=== PATIENT | male | born 1945 | race Caucasian/White ===

== ENCOUNTER 2016-12-03 13:44 | Emergency (ER) | payer MEDICARE, OTHER ==
[~2016-12-03] VITALS: Ht 175.3 cm; Wt 104.3 kg
--- OUTSIDE RECORDS SUMMARY | ~2016-12-03 | XMS ---
Demographics + + + | Address | [address] | | | [place] [address] | + + + | Preferred Language | Unknown | + + + | Marital Status | Unknown | + + + | Zoroastrian Affiliation | Unknown | + + + | Race | Unknown | + + + | Ethnic Group | Unknown | + + + Author + + + | Author | [facility] | + + + | Organization | [facility] | + + + | Address | [address] | | | [place] [address] | + + + | Phone | | + + + Care Team Providers + + + + | Care Outpatient Scheduler Name | Role | Phone | + + + + Unavailable | Unavailable | + + + + PROBLEMS +---------+ + + +--------+ + + | Type | Condition | ICD9-CM | [id number] | Onset | Condition | SNOMED | | | | Code | Code | Dates | Status | Code | +---------+ + + +--------+ + + | Problem | Cardiovasc | I25.10 | | | Active | [id number] | | | ular | | | | | | | | disease | | | | | | +---------+ + + +--------+ + + | Problem | Type 2 | | E11.9 | | Active | [id number] | | | diabetes | | | | | | | | mellitus | | | | | | | | without | | | | | | | | complicati | | | | | | | | ons | | | | | | +---------+ + + +--------+ + + | Problem | Hyperlipid | | E78.5 | | Active | [id number] | | | emia | | | | | | +---------+ + + +--------+ + + ALLERGIES Unknown Allergies SOCIAL HISTORY No smoking Hx information available PLAN OF CARE VITAL SIGNS MEDICATIONS Unknown Medications RESULTS No Results PROCEDURES No Known procedures IMMUNIZATIONS No Known Immunizations"
--- OUTSIDE RECORDS SUMMARY | ~2016-12-03 | XMS ---
Demographics + + + | Address | [address] | | | [address] | | | [place] [address] | + + + | Preferred Language | Unknown | + + + | Marital Status | Unknown | + + + | Mandaeism Affiliation | Unknown | + + + | Race | Unknown | + + + | Ethnic Group | Unknown | + + + Author + + + | Author | [facility] | + + + | Organization | [facility] | + + + | Address | [address] | | | [place] [address] | + + + | Phone | | + + + Care Team Providers + + + + | Care Paragliding Instructor Name | Role | Phone | + + + + Unavailable | Unavailable | + + + + PROBLEMS +---------+ + + +--------+ + + | Type | Condition | ICD9-CM | [id number] | Onset | Condition | SNOMED | | | | Code | Code | Dates | Status | Code | +---------+ + + +--------+ + + | Problem | Headache | | R51 | | Active | [id number] | +---------+ + + +--------+ + + | Problem | Cardiovasc | I25.10 | | | Active | 14487034 | | | ular | | | | | | | | disease | | | | | | +---------+ + + +--------+ + + | Problem | Type 2 | | E11.9 | | Active | [id number] | | | diabetes | | | | | | | | mellitus | | | | | | | | without | | | | | | | | complicati | | | | | | | | ons | | | | | | +---------+ + + +--------+ + + | Problem | Hyperlipid | | E78.5 | | Active | 68883228 | | | emia | | | | | | +---------+ + + +--------+ + + ALLERGIES Unknown Allergies SOCIAL HISTORY No smoking Hx information available PLAN OF CARE VITAL SIGNS MEDICATIONS Unknown Medications RESULTS No Results PROCEDURES No Known procedures IMMUNIZATIONS No Known Immunizations"
--- OUTSIDE RECORDS SUMMARY | ~2016-12-03 | XMS ---
Demographics + + + | Address | [address] | | | [address] | | | [place] [address] | + + + | Preferred Language | Unknown | + + + | Marital Status | Unknown | + + + | Druze Affiliation | Unknown | + + + | Race | Unknown | + + + | Ethnic Group | Unknown | + + + Author + + + | Author | [facility] | + + + | Organization | [facility] | + + + | Address | [address] | | | [place] [address] | + + + | Phone | | + + + Care Team Providers + + + + | Care Regional Cra Name | Role | Phone | + + + + Unavailable | Unavailable | + + + + PROBLEMS + + + + + + + + | Type | Condition | ICD9-CM | [id number] | Onset | Condition | SNOMED | | | | Code | Code | Dates | Status | Code | + + + + + + + + | Problem | Headache | | R51 | | Active | [id number] | + + + + + + + + | Problem | Cardiovasc | I25.10 | | | Active | 03067066 | | | ular | | | | | | | | disease | | | | | | + + + + + + + + | Assessment | tank terminal gauger | | Z79.01 | 11 September, | Active | [id number] | | | (current) | | | 2016 | | | | | use of | | | | | | | | anticoagul | | | | | | | | ants | | | | | | + + + + + + + + | Problem | Type 2 | | E11.9 | | Active | [id number] | | | diabetes | | | | | | | | mellitus | | | | | | | | without | | | | | | | | complicati | | | | | | | | ons | | | | | | + + + + + + + + | Problem | Hyperlipid | | E78.5 | | Active | 84362037 | | | emia | | | | | | + + + + + + + + ALLERGIES + + + + +--------+ | Substance | Reaction | Event Type | Date | Status | + + + + +--------+ | PredniSONE | Unknown | Drug Allergy | August, | Active | + + + + +--------+ | Depakene | Unknown | Drug Allergy | August, | Active | + + + + +--------+ | Valproic Acid | Unknown | Non Drug | August, | Active | | | | Allergy | | | + + + + +--------+ | PCN | Unknown | Non Drug | August, | Active | | | | Allergy | | | + + + + +--------+ SOCIAL HISTORY No smoking Hx information available PLAN OF CARE + +---------+ | Activity | Details | + +---------+ +---+ | | +---+ + + + | Pending Test | INR | + + + | | 2 - 3 Days,Reason: | + + + VITAL SIGNS + + + + | Height | 70 in | 2016-09-11 | + + + + | Weight | 237.5 lbs | 2016-09-11 | + + + + | BMI | 34.07 kg/m2 | 2016-09-11 | + + + + | Temperature | 97.9 degrees Fahrenheit | 2016-09-11 | + + + + | Heart Rate | 78 /min | 2016-09-11 | + + + + | Blood pressure systolic | 156 mm Hg | 2016-09-11 | + + + + | Blood pressure diastolic | 94 mm Hg | 2016-09-11 | + + + + MEDICATIONS + + +--------+ +--------+ + +--------+ | Medicati | Instruct | Dosage | Frequenc | Start | End Date | Duration | Status | | on | ions | | y | Date | | | | + + +--------+ +--------+ + +--------+ | Coumadin | | | | | | | Active | + + +--------+ +--------+ + +--------+ | Lamotrig | Orally | 1 tab | 12h | | | 30 | Active | | ine 200 | Twice a | | | | | | | | mg | day | | | | | | | + + +--------+ +--------+ + +--------+ | Keppra | Orally | 3 tabs | 12h | | | 30 | Active | | 500 MG | bid | | | | | | | + + +--------+ +--------+ + +--------+ RESULTS No Results PROCEDURES + + + + + | Procedure | Date Ordered | Related Diagnosis | Body Site | + + + + + | Office Visit, Est | September 11, 2016 | | | | Pt., Level 4 | | | | + + + + + IMMUNIZATIONS No Known Immunizations"
--- OUTSIDE RECORDS SUMMARY | ~2016-12-03 | XMS ---
Demographics + + + | Address | [address] | | | [address] | | | [place] [address] | + + + | Preferred Language | Unknown | + + + | Marital Status | Unknown | + + + | Scientology Affiliation | Unknown | + + + | Race | Unknown | + + + | Ethnic Group | Unknown | + + + Author + + + | Author | [facility] | + + + | Organization | [facility] | + + + | Address | [address] | | | [place] [address] | + + + | Phone | | + + + Care Team Providers + + + + | Care Software Application Tester Name | Role | Phone | + + + + Unavailable | Unavailable | + + + + PROBLEMS +---------+ + + +--------+ + + | Type | Condition | ICD9-CM | [id number] | Onset | Condition | SNOMED | | | | Code | Code | Dates | Status | Code | +---------+ + + +--------+ + + | Problem | Headache | | R51 | | Active | [id number] | +---------+ + + +--------+ + + | Problem | Cardiovasc | I25.10 | | | Active | 55625018 | | | ular | | | | | | | | disease | | | | | | +---------+ + + +--------+ + + | Problem | Type 2 | | E11.9 | | Active | 062839112 | | | diabetes | | | | | | | | mellitus | | | | | | | | without | | | | | | | | complicati | | | | | | | | ons | | | | | | +---------+ + + +--------+ + + | Problem | Hyperlipid | | E78.5 | | Active | 28637804 | | | emia | | | | | | +---------+ + + +--------+ + + ALLERGIES Unknown Allergies SOCIAL HISTORY No smoking Hx information available PLAN OF CARE VITAL SIGNS MEDICATIONS Unknown Medications RESULTS No Results PROCEDURES No Known procedures IMMUNIZATIONS No Known Immunizations"
--- OUTSIDE RECORDS SUMMARY | ~2016-12-03 | XMS ---
Demographics + + + | Address | [address] | | | [place] [address] | + + + | Preferred Language | Unknown | + + + | Marital Status | Unknown | + + + | Buddhism Affiliation | Unknown | + + + | Race | Unknown | + + + | Ethnic Group | Unknown | + + + Author + + + | Author | [facility] | + + + | Organization | [facility] | + + + | Address | [address] | | | [place] [address] | + + + | Phone | | + + + Care Team Providers + + + + | Care Cloth Layer Name | Role | Phone | + + + + Unavailable | Unavailable | + + + + PROBLEMS + + + + + + + + | Type | Condition | ICD9-CM | [id number] | Onset | Condition | SNOMED | | | | Code | Code | Dates | Status | Code | + + + + + + + + | Problem | Cardiovasc | I25.10 | | | Active | 35400280 | | | ular | | | | | | | | disease | | | | | | + + + + + + + + | Problem | Type 2 | | E11.9 | | Active | 831531233 | | | diabetes | | | | | | | | mellitus | | | | | | | | without | | | | | | | | complicati | | | | | | | | ons | | | | | | + + + + + + + + | Assessment | History of | Z86.711 | | 25 August, | Active | 576782432 | | | 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 | | | | | embolus | | | | | | | | (PE) | | | | | | + + + + + + + + | Problem | Hyperlipid | | E78.5 | | Active | 92261396 | | | emia | | | | | | + + + + + + + + | Assessment | Type 2 | | E11.9 | August, | Active | [id number] | | | diabetes | | | 2016 | | | | | mellitus | [...] information available PLAN OF CARE VITAL SIGNS + + + + | Height | 70 in | 2016-08-25 | + + + + | Weight | 234 lbs | 2016-08-25 | + + + + | BMI | 33.57 kg/m2 | 2016-08-25 | + + + + | Heart Rate | 66 /min | 2016-08-25 | + + + + | Blood pressure systolic | 149 mm Hg | 2016-08-25 | + + + + | Blood pressure diastolic | 85 mm Hg | 2016-08-25 | + + + + MEDICATIONS + + + + + + + +--------+ | Medicati | Instruct | Dosage | Frequenc | Start | End Date | Duration | Status | | on | ions | | y | Date | | | | + + + + + + + +--------+ | Metformi | Orally | 1 tablet | 12h | 04 August, | | 30 | Active | | n HCl | Twice a | with | | 2016 | | day(s) | | | 1000 MG | day | meals | | | | | | + + + + + + + +--------+ | Keppra | | | | | | | Active | | 250 MG | | | | | | | | + + + + + + + +--------+ | Lamotrig | Orally | 1 | 12h | | | | Active | | ine 100 | Twice a | 1/2table | | | | | | | mg | day | t | | | | | | + + + + + + + +--------+ RESULTS + +--------+ + + | Name | Result | Date | Reference Range | + +--------+ + + | Hb A1C | | 2016-08-25 | | + +--------+ + + | Hemoglobin A1c | 7.6 | | | + +--------+ + + PROCEDURES + + + + + | Procedure | Date Ordered | Related Diagnosis | Body Site | + + + + + | Office Visit, Est | August 25, 2016 | | | | Pt., Level 3 | | | | + + + + + IMMUNIZATIONS No Known Immunizations"
--- OUTSIDE RECORDS SUMMARY | ~2016-12-03 | XMS ---
Demographics + + + | Address | [address] | | | [place] [address] | + + + | Preferred Language | Unknown | + + + | Marital Status | Unknown | + + + | Buddhist Affiliation | Unknown | + + + | Race | Unknown | + + + | Ethnic Group | Unknown | + + + Author + + + | Author | [facility] | + + + | Organization | [facility] | + + + | Address | [address] | | | [place] [address] | + + + | Phone | Unavailable | + + + Care Team Providers + + + + | Care Job Spotter Name | Role | Phone | + + + + Unavailable | Unavailable | + + + + PROBLEMS Unknown Problems ALLERGIES Unknown Allergies SOCIAL HISTORY No smoking Hx information available PLAN OF CARE VITAL SIGNS MEDICATIONS Unknown Medications RESULTS No Results PROCEDURES No Known procedures IMMUNIZATIONS No Known Immunizations"
--- OUTSIDE RECORDS SUMMARY | ~2016-12-03 | XMS ---
Demographics + + + | Address | [address] | | | [place] [address] | + + + | Preferred Language | Unknown | + + + | Marital Status | Unknown | + + + | Anglican Affiliation | Unknown | + + + | Race | Unknown | + + + | Ethnic Group | Unknown | + + + Author + + + | Author | [facility] | + + + | Organization | [facility] | + + + | Address | [address] | | | [place] [address] | + + + | Phone | | + + + Care Team Providers + + + + | Care Field Marketing Specialist Name | Role | Phone | + + + + Unavailable | Unavailable | + + + + PROBLEMS +---------+ + + +--------+ + + | Type | Condition | ICD9-CM | [id number] | Onset | Condition | SNOMED | | | | Code | Code | Dates | Status | Code | +---------+ + + +--------+ + + | Problem | Cardiovasc | I25.10 | | | Active | 87528753 | | | ular | | | | | | | | disease | | | | | | +---------+ + + +--------+ + + | Problem | Type 2 | | E11.9 | | Active | 492404754 | | | diabetes | | | | | | | | mellitus | | | | | | | | without | | | | | | | | complicati | | | | | | | | ons | | | | | | +---------+ + + +--------+ + + | Problem | Hyperlipid | | E78.5 | | Active | 57970482 | | | emia | | | | | | +---------+ + + +--------+ + + ALLERGIES Unknown Allergies SOCIAL HISTORY No smoking Hx information available PLAN OF CARE VITAL SIGNS MEDICATIONS Unknown Medications RESULTS No Results PROCEDURES No Known procedures IMMUNIZATIONS No Known Immunizations"
--- OUTSIDE RECORDS SUMMARY | ~2016-12-03 | XMS ---
Demographics + + + | Address | [address] | | | [address] | | | [place] [address] | + + + | Preferred Language | Unknown | + + + | Marital Status | Unknown | + + + | Protestant Affiliation | Unknown | + + + | Race | Unknown | + + + | Ethnic Group | Unknown | + + + Author + + + | Author | [facility] | + + + | Organization | [facility] | + + + | Address | [address] | | | [place] [address] | + + + | Phone | | + + + Care Team Providers + + + + | Care Event Sales Manager Name | Role | Phone | + + + + Unavailable | Unavailable | + + + + PROBLEMS +---------+ + + +--------+ + + | Type | Condition | ICD9-CM | [id number] | Onset | Condition | SNOMED | | | | Code | Code | Dates | Status | Code | +---------+ + + +--------+ + + | Problem | Headache | | R51 | | Active | 60420816 | +---------+ + + +--------+ + + | Problem | Cardiovasc | I25.10 | | | Active | 31362835 | | | ular | | | | | | | | disease | | | | | | +---------+ + + +--------+ + + | Problem | Type 2 | | E11.9 | | Active | 859075929 | | | diabetes | | | | | | | | mellitus | | | | | | | | without | | | | | | | | complicati | | | | | | | | ons | | | | | | +---------+ + + +--------+ + + | Problem | Hyperlipid | | E78.5 | | Active | 32503440 | | | emia | | | | | | +---------+ + + +--------+ + + ALLERGIES Unknown Allergies SOCIAL HISTORY No smoking Hx information available PLAN OF CARE VITAL SIGNS MEDICATIONS + + +--------+ +--------+ + +--------+ | Medicati | Instruct | Dosage | Frequenc | Start | End Date | Duration | Status | | on | ions | | y | Date | | | | + + +--------+ +--------+ + +--------+ | Lamotrig | Orally | 1 tab | 12h | | | 30 days | Active | | ine 200 | Twice a | | | | | | | | mg | day | | | | | | | + + +--------+ +--------+ + +--------+ RESULTS No Results PROCEDURES No Known procedures IMMUNIZATIONS No Known Immunizations"
--- OUTSIDE RECORDS SUMMARY | ~2016-12-03 | XMS ---
Demographics + + + | Address | [address] | | | [address] | | | [place] [address] | + + + | Preferred Language | Unknown | + + + | Marital Status | Unknown | + + + | Mandaen Affiliation | Unknown | + + + | Race | Unknown | + + + | Ethnic Group | Unknown | + + + Author + + + | Author | [facility] | + + + | Organization | [facility] | + + + | Address | [address] | | | [place] [address] | + + + | Phone | | + + + Care Team Providers + + + + | Care Pathology Specialist Name | Role | Phone | + + + + Unavailable | Unavailable | + + + + PROBLEMS +---------+ + + +--------+ + + | Type | Condition | ICD9-CM | [id number] | Onset | Condition | SNOMED | | | | Code | Code | Dates | Status | Code | +---------+ + + +--------+ + + | Problem | Headache | | R51 | | Active | 92696674 | +---------+ + + +--------+ + + | Problem | Cardiovasc | I25.10 | | | Active | 91831835 | | | ular | | | | | | | | disease | | | | | | +---------+ + + +--------+ + + | Problem | Type 2 | | E11.9 | | Active | 254943327 | | | diabetes | | | | | | | | mellitus | | | | | | | | without | | | | | | | | complicati | | | | | | | | ons | | | | | | +---------+ + + +--------+ + + | Problem | Hyperlipid | | E78.5 | | Active | 97595988 | | | emia | | | | | | +---------+ + + +--------+ + + ALLERGIES No Known Allergies SOCIAL HISTORY No smoking Hx information [...]
--- OUTSIDE RECORDS SUMMARY | ~2016-12-03 | XMS ---
Demographics + + + | Address | [address] | | | [place] [address] | + + + | Preferred Language | Unknown | + + + | Marital Status | Unknown | + + + | Jew Affiliation | Unknown | + + + | Race | Unknown | + + + | Ethnic Group | Unknown | + + + Author + + + | Author | [facility] | + + + | Organization | [facility] | + + + | Address | [address] | | | [place] [address] | + + + | Phone | | + + + Care Team Providers + + + + | Care Aoc Operations Intelligence Officer Name | Role | Phone | + + + + Unavailable | Unavailable | + + + + PROBLEMS +---------+ + + +--------+ + + | Type | Condition | ICD9-CM | [id number] | Onset | Condition | SNOMED | | | | Code | Code | Dates | Status | Code | +---------+ + + +--------+ + + | Problem | Cardiovasc | I25.10 | | | Active | 27264432 | | | ular | | | | | | | | disease | | | | | | +---------+ + + +--------+ + + | Problem | Type 2 | | E11.9 | | Active | 122772513 | | | diabetes | | | | | | | | mellitus | | | | | | | | without | | | | | | | | complicati | | | | | | | | ons | | | | | | +---------+ + + +--------+ + + | Problem | Hyperlipid | | E78.5 | | Active | 23844464 | | | emia | | | [...]
--- OUTSIDE RECORDS SUMMARY | ~2016-12-03 | XMS ---
Demographics + + + | Address | [address] | | | [place] [address] | + + + | Preferred Language | Unknown | + + + | Marital Status | Unknown | + + + | Caodaism Affiliation | Unknown | + + + | Race | Unknown | + + + | Ethnic Group | Unknown | + + + Author + + + | Author | [facility] | + + + | Organization | [facility] | + + + | Address | [address] | | | [place] [address] | + + + | Phone | | + + + Care Team Providers + + + + | Care Front Desk Officer Name | Role | Phone | + + + + Unavailable | Unavailable | + + + + PROBLEMS +---------+ + + +--------+ + + | Type | Condition | ICD9-CM | [id number] | Onset | Condition | SNOMED | | | | Code | Code | Dates | Status | Code | +---------+ + + +--------+ + + | Problem | Cardiovasc | I25.10 | | | Active | 41790693 | | | ular | | | | | | | | disease | | | | | | +---------+ + + +--------+ + + | Problem | Type 2 | | E11.9 | | Active | 729644320 | | | diabetes | | | | | | | | mellitus | | | | | | | | without | | | | | | | | complicati | | | | | | | | ons | | | | | | +---------+ + + +--------+ + + | Problem | Hyperlipid | | E78.5 | | Active | 90072448 | | | emia | | | | | | +---------+ + + +--------+ + + ALLERGIES Unknown Allergies SOCIAL HISTORY No smoking Hx information available PLAN OF CARE VITAL SIGNS MEDICATIONS Unknown Medications RESULTS No Results PROCEDURES No Known procedures IMMUNIZATIONS No Known Immunizations"
--- OUTSIDE RECORDS SUMMARY | ~2016-12-03 | XMS ---
Demographics + + + | Address | [address] | | | [place] [address] | + + + | Preferred Language | Unknown | + + + | Marital Status | Unknown | + + + | Episcopal Affiliation | Unknown | + + + | Race | Unknown | + + + | Ethnic Group | Unknown | + + + Author + + + | Author | [facility] | + + + | Organization | [facility] | + + + | Address | [address] | | | [place] [address] | + + + | Phone | | + + + Care Team Providers + + + + | Care Mobile Architect Name | Role | Phone | + + + + Unavailable | Unavailable | + + + + PROBLEMS +---------+ + + +--------+ + + | Type | Condition | ICD9-CM | [id number] | Onset | Condition | SNOMED | | | | Code | Code | Dates | Status | Code | +---------+ + + +--------+ + + | Problem | Cardiovasc | I25.10 | | | Active | 04097097 | | | ular | | | | | | | | disease | | | | | | +---------+ + + +--------+ + + | Problem | Type 2 | | E11.9 | | Active | 647267944 | | | diabetes | | | | | | | | mellitus | | | | | | | | without | | | | | | | | complicati | | | | | | | | ons | | | | | | +---------+ + + +--------+ + + | Problem | Hyperlipid | | E78.5 | | Active | 17699776 | | | emia | | | | | | +---------+ + + +--------+ + + ALLERGIES Unknown Allergies SOCIAL HISTORY No smoking Hx information available PLAN OF CARE VITAL SIGNS MEDICATIONS + + + + + + + +--------+ | Medicati | Instruct | Dosage | Frequenc | Start | End Date | Duration | Status | | on | ions | | y | Date | | | | + + + + + + + +--------+ | Metformi | Orally | 1 tablet | 12h | 25 August, | | 30 | Active | | n HCl | Twice a | with | | 2017 | | day(s) | | | 1000 MG | day | meals | | | | | | + + + + + + + +--------+ | Keppra | Orally | [...] + + + + + +--------+ RESULTS No Results PROCEDURES No Known procedures IMMUNIZATIONS No Known Immunizations"
--- OUTSIDE RECORDS SUMMARY | ~2016-12-03 | XMS ---
Demographics + + + | Address | [address] | | | [address] | | | [place] [address] | + + + | Preferred Language | Unknown | + + + | Marital Status | Unknown | + + + | Quaker Affiliation | Unknown | + + + | Race | Unknown | + + + | Ethnic Group | Unknown | + + + Author + + + | Author | [facility] | + + + | Organization | [facility] | + + + | Address | [address] | | | [place] [address] | + + + | Phone | | + + + Care Team Providers + + + + | Care Vamp Throater Name | Role | Phone | + + + + Unavailable | Unavailable | + + + + PROBLEMS +---------+ + + +--------+ + + | Type | Condition | ICD9-CM | [id number] | Onset | Condition | SNOMED | | | | Code | Code | Dates | Status | Code | +---------+ + + +--------+ + + | Problem | Headache | | R51 | | Active | 08949063 | +---------+ + + +--------+ + + | Problem | Cardiovasc | I25.10 | | | Active | 58468491 | | | ular | | | | | | | | disease | | | | | | +---------+ + + +--------+ + + | Problem | Type 2 | | E11.9 | | Active | 155127017 | | | diabetes | | | | | | | | mellitus | | | | | | | | without | | | | | | | | complicati | | | | | | | | ons | | | | | | +---------+ + + +--------+ + + | Problem | Hyperlipid | | E78.5 | | Active | 20776157 | | | emia | | | | | | +---------+ + + +--------+ + + ALLERGIES Unknown Allergies SOCIAL HISTORY No smoking Hx information available PLAN OF CARE VITAL SIGNS MEDICATIONS Unknown Medications RESULTS No Results PROCEDURES No Known procedures IMMUNIZATIONS No Known Immunizations"
--- OUTSIDE RECORDS SUMMARY | ~2016-12-03 | XMS ---
Demographics + + + | Address | [address] | | | [place] [address] | + + + | Preferred Language | Unknown | + + + | Marital Status | Unknown | + + + | Jehovah'S Witness Affiliation | Unknown | + + + | Race | Unknown | + + + | Ethnic Group | Unknown | + + + Author + + + | Author | [facility] | + + + | Organization | [facility] | + + + | Address | [address] | | | [place] [address] | + + + | Phone | | + + + Care Team Providers + + + + | Care Freight Car Builder Name | Role | Phone | + + + + Unavailable | Unavailable | + + + + PROBLEMS +---------+ + + +--------+ + + | Type | Condition | ICD9-CM | [id number] | Onset | Condition | SNOMED | | | | Code | Code | Dates | Status | Code | +---------+ + + +--------+ + + | Problem | Cardiovasc | I25.10 | | | Active | [id number] | | | ular | | | | | | | | disease | | | | | | +---------+ + + +--------+ + + | Problem | Type 2 | | E11.9 | | Active | [id number] | | | diabetes | | | | | | | | mellitus | | | | | | | | without | | | | | | | | complicati | | | | | | | | ons | | | | | | +---------+ + + +--------+ + + | Problem | Hyperlipid | | E78.5 | | Active | [id number] | | | emia | | | | | | +---------+ + + +--------+ + + ALLERGIES Unknown Allergies SOCIAL HISTORY No smoking Hx information available PLAN OF CARE VITAL SIGNS MEDICATIONS + + + + +--------+ + +--------+ | Medicati | Instruct | Dosage | Frequenc | Start | End Date | Duration | Status | | on | ions | | y | Date | | | | + + + + +--------+ + +--------+ | Lamotrig | Orally | 1 | 12h | | | | Active | | ine 100 | Twice a | 1/2table | | | | | | | mg | day | t | | | | | | + + + + +--------+ + +--------+ RESULTS No Results PROCEDURES No Known procedures IMMUNIZATIONS No Known Immunizations"
--- OUTSIDE RECORDS SUMMARY | ~2016-12-03 | XMS ---
Demographics + + + | Address | [address] | | | [address] | | | [place] [address] | + + + | Preferred Language | Unknown | + + + | Marital Status | Unknown | + + + | Confucianist Affiliation | Unknown | + + + | Race | Unknown | + + + | Ethnic Group | Unknown | + + + Author + + + | Author | [facility] | + + + | Organization | [facility] | + + + | Address | [address] | | | [place] [address] | + + + | Phone | | + + + Care Team Providers + + + + | Care Suspension Cord Tier Name | Role | Phone | + + + + Unavailable | Unavailable | + + + + PROBLEMS +---------+ + + +--------+ + + | Type | Condition | ICD9-CM | [id number] | Onset | Condition | SNOMED | | | | Code | Code | Dates | Status | Code | +---------+ + + +--------+ + + | Problem | Headache | | R51 | | Active | [id number] | +---------+ + + +--------+ + + | Problem | Cardiovasc | I25.10 | | | Active | [id number] | | | ular | | | | | | | | disease | | | | | | +---------+ + + +--------+ + + | Problem | Type 2 | | E11.9 | | Active | [id number] | | | diabetes | | | | | | | | mellitus | | | | | | | | without | | | | | | | | complicati | | | | | | | | ons | | | | | | +---------+ + + +--------+ + + | Problem | Hyperlipid | | E78.5 | | Active | [id number] | | | emia | | | | | | +---------+ + + +--------+ + + ALLERGIES + + + + +--------+ | Substance | Reaction | Event Type | Date | Status | + + + + +--------+ | PredniSONE | Unknown | Drug Allergy | Sep, | Active | + + + + +--------+ | Depakene | Unknown | Drug Allergy | Sep, | Active | + + + + +--------+ | Valproic Acid | Unknown | Non Drug | Sep, | Active | | | | Allergy | | | + + + + +--------+ | PCN | Unknown | Non Drug | Sep, | Active | | | | Allergy | | | + + + + +--------+ SOCIAL HISTORY No smoking Hx information available PLAN OF CARE + +---------+ | Activity | Details | + +---------+ +---+ | | +---+ + + + | Follow Up | prn Reason:null | + + + VITAL SIGNS + + + + | Height | 70 in | 2016-10-06 | + + + + | Weight | 235.6 lbs | 2016-10-06 | + + + + | BMI | 33.80 kg/m2 | 2016-10-06 | + + + + | Temperature | 97.9 degrees Fahrenheit | 2016-10-06 | + + + + | Heart Rate | 65 /min | 2016-10-06 | + + + + | Blood pressure systolic | 136 mm Hg | 2016-10-06 | + + + + | Blood pressure diastolic | 75 mm Hg | 2016-10-06 | + + + + MEDICATIONS + [...] +--------+ +--------+ + +--------+ | Coumadin | Orally | | 24h | | | | Active | | 10 MG | Once a | | | | | | | | | day | | | | | [...] + + | Office Visit, Est | October 06, 2016 | | | | Pt., Level 2 | | | | + + + + + IMMUNIZATIONS No Known Immunizations"
--- OUTSIDE RECORDS SUMMARY | ~2016-12-03 | XMS ---
Demographics + + + | Address | [address] | | | [address] | | | [place] [address] | + + + | Preferred Language | Unknown | + + + | Marital Status | Unknown | + + + | Gnosticist Affiliation | Unknown | + + + | Race | Unknown | + + + | Ethnic Group | Unknown | + + + Author + + + | Author | [facility] | + + + | Organization | [facility] | + + + | Address | [address] | | | [place] [address] | + + + | Phone | | + + + Care Team Providers + + + + | Care Oracle Financials Consultant Name | Role | Phone | + + + + Unavailable | Unavailable | + + + + PROBLEMS +---------+ + + +--------+ + + | Type | Condition | ICD9-CM | [id number] | Onset | Condition | SNOMED | | | | Code | Code | Dates | Status | Code | +---------+ + + +--------+ + + | Problem | Headache | | R51 | | Active | [id number] | +---------+ + + +--------+ + + | Problem | Cardiovasc | I25.10 | | | Active | 76022848 | | | ular | | | | | | | | disease | | | | | | +---------+ + + +--------+ + + | Problem | Type 2 | | E11.9 | | Active | [id number] | | | diabetes | | | | | | | | mellitus | | | | | | | | without | | | | | | | | complicati | | | | | | | | ons | | | | | | +---------+ + + +--------+ + + | Problem | Hyperlipid | | E78.5 | | Active | [id number] | | | emia | | | | | | +---------+ + + +--------+ + + ALLERGIES No Known Allergies SOCIAL HISTORY No smoking Hx information available PLAN OF CARE VITAL SIGNS MEDICATIONS No Known Medications RESULTS No Results PROCEDURES No Known procedures IMMUNIZATIONS No Known Immunizations"
--- OUTSIDE RECORDS SUMMARY | ~2016-12-03 | XMS ---
Demographics + + + | Address | [address] | | | [address] | | | [place] [address] | + + + | Preferred Language | Unknown | + + + | Marital Status | Unknown | + + + | Episcopalian Affiliation | Unknown | + + + | Race | Unknown | + + + | Ethnic Group | Unknown | + + + Author + + + | Author | [facility] | + + + | Organization | [facility] | + + + | Address | [address] | | | [place] [address] | + + + | Phone | | + + + Care Team Providers + + + + | Care Manager Intelligence Name | Role | Phone | + + + + Unavailable | Unavailable | + + + + PROBLEMS +---------+ + + +--------+ + + | Type | Condition | ICD9-CM | [id number] | Onset | Condition | SNOMED | | | | Code | Code | Dates | Status | Code | +---------+ + + +--------+ + + | Problem | Headache | | R51 | | Active | [id number] | +---------+ + + +--------+ + + | Problem | Cardiovasc | I25.10 | | | Active | 68473371 | | | ular | | | | | | | | disease | | | | | | +---------+ + + +--------+ + + | Problem | Type 2 | | E11.9 | | Active | 850263584 | | | diabetes | | | | | | | | mellitus | | | | | | | | without | | | | | | | | complicati | | | | | | | | ons | | | | | | +---------+ + + +--------+ + + | Problem | Hyperlipid | | E78.5 | | Active | 72459816 | | | emia | | | | | | +---------+ + + +--------+ + + ALLERGIES Unknown Allergies SOCIAL HISTORY No smoking Hx information available PLAN OF CARE VITAL SIGNS MEDICATIONS Unknown Medications RESULTS No Results PROCEDURES No Known procedures IMMUNIZATIONS No Known Immunizations"
--- OUTSIDE RECORDS SUMMARY | ~2016-12-03 | XMS ---
Demographics + + + | Address | [address] | | | [place] [address] | + + + | Preferred Language [...] | + + + | Organization | [facility] | + + + | Address | [address] | | | [place] [address] | + + + | Phone | | + + + Care Team Providers + + + + | Care Wet Mix Operator Name | Role | Phone | + + + + Unavailable | Unavailable | + + + + PROBLEMS +---------+ + + +--------+ + + | Type | Condition | ICD9-CM | [id number] | Onset | Condition | SNOMED | | | | Code | Code | Dates | Status | Code | +---------+ + + +--------+ + + | Problem | Cardiovasc | I25.10 | | | Active | [id number] | | | ular | | | | | | | | disease | | | | | | +---------+ + + +--------+ + + | Problem | Type 2 | | E11.9 | | Active | 671770486 | | | diabetes | | | | | | | | mellitus | | | | | | | | without | | | | | | | | complicati | | | | | | | | ons | | | | | | +---------+ + + +--------+ + + | Problem | Hyperlipid | | E78.5 | | Active | 33690723 | | | emia | | | | | | +---------+ + + +--------+ + + ALLERGIES Unknown Allergies SOCIAL HISTORY No smoking Hx information available PLAN OF CARE VITAL SIGNS MEDICATIONS Unknown Medications RESULTS No Results PROCEDURES No Known procedures IMMUNIZATIONS No Known Immunizations"
--- OUTSIDE RECORDS SUMMARY | ~2016-12-03 | XMS ---
Demographics + + + | Address | [address] | | | [address] | | | [place] [address] | + + + | Preferred Language [...] | + + + | Organization | [facility] | + + + | Address | [address] | | | [place] [address] | + + + | Phone | | + + + Care Team Providers + + + + | Care Division Commander Name | Role | Phone | + + + + Unavailable | Unavailable | + + + + PROBLEMS +---------+ + + +--------+ + + | Type | Condition | ICD9-CM | [id number] | Onset | Condition | SNOMED | | | | Code | Code | Dates | Status | Code | +---------+ + + +--------+ + + | Problem | Headache | | R51 | | Active | [id number] | +---------+ + + +--------+ + + | Problem | Cardiovasc | I25.10 | | | Active | 33713869 | | | ular | | | | | | | | disease | | | | | | +---------+ + + +--------+ + + | Problem | Type 2 | | E11.9 | | Active | [id number] | | | diabetes | | | | | | | | mellitus | | | | | | | | without | | | | | | | | complicati | | | | | | | | ons | | | | | | +---------+ + + +--------+ + + | Problem | Hyperlipid | | E78.5 | | Active | 40804258 | | | emia | | | | | | +---------+ + + +--------+ + + ALLERGIES Unknown Allergies SOCIAL HISTORY No smoking Hx information available PLAN OF CARE VITAL SIGNS MEDICATIONS Unknown Medications RESULTS No Results PROCEDURES No Known procedures IMMUNIZATIONS No Known Immunizations"
--- OUTSIDE RECORDS SUMMARY | ~2016-12-03 | XMS ---
Demographics + + + | Address | [address] | | | [place] [address] | + + + | Preferred Language [...] + + + | Organization | [facility] | + + + | Address | [address] | | | [place] [address] | + + + | Phone | | + + + Care Team Providers + + + + | Care Die Lay Out Worker Name | Role | Phone | + + + + Unavailable | Unavailable | + + + + PROBLEMS +---------+ + + +--------+ + + | Type | Condition | ICD9-CM | [id number] | Onset | Condition | SNOMED | | | | Code | Code | Dates | Status | Code | +---------+ + + +--------+ + + | Problem | Cardiovasc | I25.10 | | | Active | 83024417 | | | ular | | | | | | | | disease | | | | | | +---------+ + + +--------+ + + | Problem | Type 2 | | E11.9 | | Active | [id number] | | | diabetes | | | | | | | | mellitus | | | | | | | | without | | | | | | | | complicati | | | | | | | | ons | | | | | | +---------+ + + +--------+ + + | Problem | Hyperlipid | | E78.5 | | Active | [id number] | | | emia | | | [...]
[~2016-12-03 13:44] MED LIST: COUMADIN5 MG PO; KEPPRA500 MG PO; LAMOTRIGINE300 MG PO
== END 2016-12-03 16:03 | disposition home or self-care (01) ==
LOC: ED 13:44
DX: F22 Delusional disorders (principal); R45.850 Homicidal ideations; I10 Essential (primary) hypertension; F32.9 Major depressive disorder, single episode, unspecified; I25.2 Old myocardial infarction; F17.200 Nicotine dependence, unspecified, uncomplicated; Z95.5 Presence of coronary angioplasty implant and graft; Z88.0 Allergy status to penicillin; Z88.8 Allergy status to other drugs, medicaments and biological substances; Z79.899 Other long term (current) drug therapy; Z79.01 Long term (current) use of anticoagulants
CPT/HCPCS: 80053; 80176; 81001; 84443; 85025; 99283; G0480

== ENCOUNTER 2017-12-20 02:39 | Emergency (ER) | payer MEDICARE ==
[~2017-12-20] VITALS: Ht 175.3 cm; Wt 104.3 kg
--- OUTSIDE RECORDS SUMMARY | ~2017-12-20 | XMS | Clinical Summary ---
Demographics + + + | Address | [address] | | | [place] [address] | + + + | Home Phone | | + + + | Preferred Language | Unknown | + + + | Marital Status | | + + + | Protestant Affiliation | Unknown | + + + | Race | Unknown | + + + | Ethnic Group | Unknown | + + + Author + + + | Author | [facility] | + + + | Organization | [facility] | + + + | Address | Unknown | + + + | Phone | Unavailable | + + + Support + + + + + | Name | Relationship | Address | Phone | + + + + + | Sheldon Dawson | ECON | [address] | | | | | [place] [address] | | + + + + + | Azalia Malone | ECON | Unknown | | + + + + + Care Team Providers + +------+ + | Care Car Washer Name | Role | Phone | + +------+ + | Nely La MD | PP | | + +------+ + Allergies + + + + + + | Active Allergy | Reactions | Severity | Noted | Comments | | | | | Date | | + + + + + + | Penicillins | Other (See Comments) | Medium | 06/07/19 | Doesn't know | | | | | 13 | | + + + + + + | Prednisone | Other (See Comments) | Medium | 06/09/19 | Prednisone | | | | | 17 | (predniSONE) | | | | | | Note:per pt; | | | | | | Type:Drug; | | | | | | Dt:06/13/2012; | + + + + + + | Valproic Acid | Confusion | Low | 03/29/20 | Depakote | | | | | 16 | (divalproex sodium) | | | | | | Note:per pt; | | | | | | Type:Drug; | | | | | | Dt:06/13/2012; | + + + + + + Current Medications + + + +---------+------+------+-------+ | Prescription | Sig. | Disp. | Refills | Star | End | Statu | | | | | | t | Date | s | | | | | | Date | | | + + + +---------+------+------+-------+ | LAMOTRIGINE PO | Take 400 mg by mouth | | | | | Activ | | | daily. | | | | | e | + + + +---------+------+------+-------+ | levETIRAcetam | Take 500 mg by | | | | | Activ | | (KEPPRA) 500 MG | mouth. | | | | | e | | tablet | | | | | | | + + + +---------+------+------+-------+ | traMADol (ULTRAM) | Take 1 tablet by | 20 | 0 | 11/0 | | Activ | | 50 MG tablet | mouth every 6 (six) | tablet | | 9/20 | | e | | | hours as needed for | | | 17 | | | | | Pain for up to 20 | | | | | | | | doses. Do not exceed | | | | | | | | 8 in a 24 hour | | | | | | | | period | | | | | | + + + +---------+------+------+-------+ | tamsulosin | Take 1 capsule by | 14 | 0 | 11/0 | | Activ | | (FLOMAX) 0.4 MG | mouth daily. | capsule | | 9/20 | | e | | capsule | | | | 17 | | | + + + +---------+------+------+-------+ | Cyanocobalamin | Inject 1,000 mcg as | 12 kit | 11 | 02/22 | | Activ | | (B-12) 1000 MCG/ML | directed daily as | | | 4/20 | | e | | KIT | needed. Daily | | | 17 | | | | | injection for 7 days | | | | | | | | Weekly injection | | | | | | | | for 4 weeks Then | | | | | | | | monthly for one year | | | | | | + + + +---------+------+------+-------+ | metFORMIN | Take 1 tablet by | 180 | 11 | 02/22 | 02/22 | Activ | | (GLUCOPHAGE) 1000 MG | mouth 2 (two) times | tablet | | /20 | 420 | e | | tablet | daily with meals. | | | 17 | 18 | | + + + +---------+------+------+-------+ | | Take 1 tablet by | 30 | 11 | /1 | 02/22 | Activ | | benazepril-hydrochlo | mouth daily. | tablet | | /20 | 20 | e | | rthiazide (LOTENSIN | | | | 17 | 18 | | | HCT) 5-6.25 MG per | | | | | | | | tablet | | | | | | | + + + +---------+------+------+-------+ | atorvastatin | Take 1 tablet by | 30 | 11 | 02/22 | 02/22 | Activ | | (LIPITOR) 10 MG | mouth nightly. | tablet | | /20 | 420 | e | | tablet | | | | 17 | 18 | | + + + +---------+------+------+-------+ | rivaroxaban | Take 1 tablet by | 30 | 11 | /1 | | Activ | | (XARELTO) 10 MG | mouth daily with | tablet | | 6/20 | | e | | tablet | dinner. 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 Begin b12 supplementation with | | injections2. Education on b12 deficiency3. Encourage to | | continue with no EToH | + + + + + | Essential hypertension | 02/21/2017 | + + + | Pure hypercholesterolemia | 02/21/2017 | + + + | H/O heart artery stent | 02/21/2017 | + + + | Aneurysm of [place] | 02/21/2017 | + + + | Chronic post-traumatic stress disorder (PTSD) | 02/21/2017 | + + + | Osteoarthritis of both hips | 02/21/2017 | + + + | Epigastric abdominal pain | 06/10/2016 | + + + | Acute saddle pulmonary embolism without acute cor pulmonale (HCC) | 06/09/2016 | + + + | SOB (shortness of breath) on exertion | 06/09/2016 | + + + | Pleuritic chest pain | 06/09/2016 | + + + | Coronary artery disease involving [facility] [place] coronary artery of | 06/09/2016 | | [facility] [place] heart without angina pectoris | | + + + + + | Last Assessment & Plan: 71 y.o. male with hx of STEMI- | | 01/17/2010- s/p [facility]A to [facility] (culprit) and RCA by Dr. Tatum, | | seizure disorder aneurysm [place], history of Pe, CAD, | | HTN, Hyperlipidemia, Dm2 and renal insufficiency, b12 for | | deficiency, PTSD come for cardiology evaluation for palpitations. | | He was in [facility] for SOB 05/2016 showed PE and since been on | | coumadin. Over a year he noted having on and off chest | | discomfort- palpitations sudden in onset lasts for minutes | | resolve on its own. He denies any complaints of SOB, dizziness, | | syncope, orthopnea, PND. No chest pain feel more like discomfort | | during the event. During his hospitalization in [facility] he had a mild | | troponin elevation which was attributed to acute PE. Echo done | | during the visit showed normal LV systolic function with severe | | RVE, mod PHTN, postero-lateral wall hypokinesis, EF 55-60%. | | Former smoker, moderate ETOH.71 yr old male with hx of CAD- [facility] | | [facility]- | | palpitationsHx of PE on fdieezam71/28/2017- NSR 80BPm, Right | | axis, inferior infarctHe have right heart changes on echo done in | | 05/2016 likely related to acute PEWill repeat echo to evaluate LV | | function, valves, PHTN, RVWill do event monitoring to evaluate | | for arrhythmiasWill do pharmacological stress MPI to evaluate for | | CAD statusBP controlled on Lotensin HCTContinue Atorvastatin | | 10mg dailyDiscussed heart healthy lifestyle, diet | | exerciseDiscussed his risk factors for SHRUTHI- he does not want to | | do sleep studyLDL/HDL worsened from 74/30(05/2016) to | | 154/33(02/2017)- will repeat lipidsF/u after tests | + + + + + | Seizure disorder (HCC) | 06/09/2016 | + + + | Acute renal failure with acute cortical necrosis (HCC) | 06/09/2016 | + + + | Type 2 diabetes mellitus without complication (HCC) | 06/09/2016 | + + + | Seizure disorder (HCC) | 07/13/2012 | + + + Immunizations + + + + | Name | Dates Previously Given | Next Due | + + + + | INFLUENZA, PF | 02/21/2017 | | | TRIVALENT HIGH DOSE | | | | 65 YRS OR > | | | + + + + | Influenza, Trivalent | 02/06/2012 | | | W/Preservative | | | + + + + | Pneumococcal | 02/05/2007 | | | Polysaccharide | | | | 23-valent | | | + + + + | Tdap | 09/02/2015 | | + + + + Family History + + +------+ + | Medical History | Relation | Name | Comments | + + +------+ + | Diabetes | Mother | | | + + +------+ + | Other (see comments) | Sister | | Per pt "heart" issues | + + +------+ + + +------+--------+ + | Relation | Name | Status | Comments | + +------+--------+ + | Mother | | | | + +------+--------+ + | Sister | | | | + +------+--------+ + Social History + +-------+ +--------+------+ | Tobacco Use | Types | Packs/Day | Years | Date | | | | | Used | | + +-------+ +--------+------+ | Former Smoker | | | | | + +-------+ +--------+------+ + +---+---+ + | Smokeless Tobacco: | | | Quit: | | Former User | | | 04/24/18 | | | | | 96 | + +---+---+ + + + | Comments: recently started smoking again | + + + + +---------+ + | Alcohol Use | Drinks/We | oz/Week | Comments | | | ek | | | + + +---------+ + | Yes | 1 Cans | 0.6 | Occas | | | of beer | | | + + +---------+ + + + + | Sex Assigned at | Date Recorded | | | | + + + | Not on file | | + + + Last Filed Vital Signs + + + + | Vital Sign | Reading | Time Taken | + + + + | Blood Pressure | 132/72 | 09/15/2017 10:20 AM PDT | + + + + | Pulse | 72 | 09/15/2017 10:20 AM PDT | + + + + | Temperature | 36.4 C (97.5 F) | 09/15/2017 10:20 AM PDT | + + + + | Respiratory Rate | 18 | 09/15/2017 10:20 AM PDT | + + + + | Oxygen Saturation | 98% | 09/15/2017 10:20 AM PDT | + + + + | Inhaled Oxygen | - | - | | Concentration | | | + + + + | Weight | 100.7 kg (222 lb) | 09/15/2017 10:20 AM PDT | + + + + | Height | 175.3 cm (5' 9") | 09/15/2017 10:20 AM PDT | + + + + | Body Mass Index | 32.78 | 09/15/2017 10:20 AM PDT | + + + + Plan of Treatment + + + + + | Health Maintenance | Due Date | Last Done | Comments | + + + + + | Diabetic Eye Exam | | | | | | 8 | | | + + + + + | Diabetic Foot Exam | | | | | | 8 | | | + + + + + | Colon Cancer | | | | | Screening | 8 | | | | (Colonoscopy) | | | | + + + + + | Vaccine: Zoster (1 | | | | | of 2) | 8 | | | + + + + + | Vaccine: | | 02/05/2007 | | | Pneumococcal 65+ | 3 | | | | High/Highest Risk (1 | | | | | of 2 - PCV13) | | | | + + + + + | Hemoglobin A1c | | 03/06/2017, 06/10/2016 | | | | 8 | | | + + + + + | Vaccine: Influenza | | 02/21/2017, 02/06/2012 | | | (#1) | 8 | | | + + + + + | Microalbumin | | 03/06/2017 | | | Screening | 8 | | | + + + + + | Vaccine: | | 09/02/2015 | | | Dtap/Tdap/Td (2 - | 6 | | | | Td) | | | | + + + + + Results Not on filefrom Last 3 Months Insurance + +--------+ +------+-------+ + | Payer | Benefi | Subscriber | Type | Phone | Address | | | t Plan | ID | | | | | | / | | | | | | | Group | | | | | + +--------+ +------+-------+ + | AUTO INSURANCE | [employer] | [id number] | | | | | | [place] | | | | | | | ENUMCL | | | | | | | AW | | | | | | | AUTO | | | | | | | INSURA | | | | | | | NCE | | | | | + +--------+ +------+-------+ + | MEDICARE | MEDICA | [id number] | | | [address] | | | [place] | | | | [place] [address] | | | IP-OP | | | | | + +--------+ +------+-------+ + | MEDICARE | MEDICA | [id number] | | | [address] | | | [place] | | | | [place] [address] | | | IP-OP | | | | | + +--------+ +------+-------+ + + +--------+ +--------+ + + | Guarantor Name | Accoun | Relation to | Date | Phone | Billing Address | | | t Type | Patient | of | | | | | | | | | | + +--------+ +--------+ + + | ROSALIND DAWSON | Person | Self [birth year] Home: | [address] | | | al/Fam | | 1945 | +- | [place] [address] | | | [place] | | | [phone] | | + +--------+ +--------+ + + | ROSALIND DAWSON | Person | Self [birth year] | Home: | [address] | | | al/Fam | | 1945 | +- | [place] [address] | | | [place] | | | [phone] | | + +--------+ +--------+ + + | ROSALIND DAWSON | Third | Other | [birth year] | Home: | [address] | | | Republican | | 1945 | +- | [place] [address] | | | [place] | | | [phone] | | | | [place] | | | | | + +--------+ +--------+ + +
--- OUTSIDE RECORDS SUMMARY | ~2017-12-20 | XMS | Clinical Summary ---
Demographics + + + | Address | [address] | | | [place] [address] | + + + | Home Phone | | + + + | Preferred Language | Unknown | + + + | Marital Status | | + + + | Uatsdin Affiliation | Unknown | + + + | Race | Unknown | + + + | Ethnic Group | Unknown | + + + Author + + + | Author | [facility] | + + + | Organization | [facility] | + + + | Address | Unknown | + + + | Phone | Unavailable | + + + Support + + + + + | Name | Relationship | Address | Phone | + + + + + | Sheldon Dawson | ECON | [address] | | | | | [place] [address] | | + + + + + | Azalia Malone | ECON | Unknown | | + + + + + Care Team Providers + +------+ + | Care Records Specialist Name | Role | Phone | [...] | + + + | Aneurysm of [place] | 02/21/2017 | + + [...] + + | Coronary artery disease involving platinum coronary artery of | 06/09/2016 | | platinum heart without angina pectoris | | + + + + + | Last Assessment & Plan: 71 y.o. male with hx of STEMI- | | 01/17/2010- s/p SHIELA to Lcx (culprit) and RCA by Dr. Tatum, | | seizure disorder aneurysm [place], history of Pe, CAD, | [...] | | [facility]- | | palpitationsHx of PE on yvvseusz16/28/2017- NSR 80BPm, Right | | axis, inferior [...] + | [employer] INS[employer]ANCE | [employer] | [id number] | | | | | | OF | | | | | | | ENUMCL | | | | | | | AW | | | | | | | AUTO | | | | | | | INSURA | | | | | | | NCE | | | | | + +--------+ +------+-------+ + | MEDICARE | MEDICA | [id number] | | | [address] | | | RE | | | | [place] [address] | | | IP-OP | | | | | + +--------+ +------+-------+ + | MEDICARE | MEDICA | [id number] | | | [address] | | | RE | | | | [place] [address] | | | IP-OP | | | [...] | Self | [birth year] Home: | [address] | | | al/Fam | | 1945 | +- | [place] [address] | | | [place] | | | [address] | | + +--------+ +--------+ + + | ROSALIND DAWSON | Person | Self | [birth year] | Home: | [address] | | | al/Fam | | 1945 | +- | [place] [address] | | | [place] | | | [address] | | + +--------+ +--------+ + + | ROSALIND DAWSON | Third | Other | [birth year] | Home: | [address] | | | [employer] | | 1945 | +- | [place] [address] | | | [place] | | | [address] | | | | ity | | | | | + +--------+ +--------+ + +
== END 2017-12-20 03:20 | disposition left against medical advice (07) ==
LOC: ED 02:39
DX: R21 Rash and other nonspecific skin eruption (principal)